=== PATIENT | female | born 1965 | race Caucasian/White ===

== ENCOUNTER 2019-06-19 12:38 | Outpatient (CLI) | payer OTHER, SELFPAY ==
--- NOTE | ~2019-06-19 | XR_ITS ---
EXAMINATION: XR lg joint inject/asp w image DATE: 06/19/2019 13:50 INDICATION: Left hip osteoarthritis TECHNIQUE: A time-out was performed to verify the patient's name, date of , and procedure to b e performed. The procedure including the risks, benefits, and alternatives was discussed with the pat ient. Risks discussed included bleeding and infection. The patient understood the risks and agreed to proceed. The skin overlying the left hip joint was prepped and draped in usual sterile fashion. An esthetic was administered with 1% lidocaine subcutaneously. A 22 G needle was advanced under fluoros copic guidance into the joint. Injection of 0.6 mL of Omnipaque 240 confirmed intra-articular positi on of the needle. Subsequently, injectate consisting of 4.5 mm of a 2:1 mixture of 0.25% Marcaine: 1 0 mg/mL Kenalog for a total dosage of 15 mg Kenalog was instilled. Washout of contrast was seen confi rming intra-articular administration. The needle was removed and the entry site was cleaned and dress ed. There were no immediate complications. Fluoroscopy exposure time was 0.1 minutes. The total numb er of images was 2. FINDINGS: Real-time fluoroscopy demonstrates the needle in the left hip joint. Patient's pain prior t o procedure:10/15. Patient's pain following the procedure: 05/17. IMPRESSION: 1. Left hip injection of local anesthetic and steroid with decrease in the patient's presenting pain. Reviewed, dictated and finalized at location A. RER OPERATOR IMPRESSION: 1. Left hip injection of local anesthetic and steroid with decrease in the candi ent's presenting pain.
== END 2019-06-19 12:39 | disposition home or self-care (01) ==
LOC: ANHIMG 12:51
PROVIDERS: PCP Nurse Practitioner Adult Health; Visit Provider Orthopaedic Surgery
DX: M16.12 Unilateral primary osteoarthritis, left hip (principal)
CPT/HCPCS: 20610; 77002; J3301; Q9966

== ENCOUNTER 2019-07-02 08:09 | Outpatient (CLI) | payer OTHER, SELFPAY ==
--- NOTE | ~2019-07-02 | US_ITS ---
EXAMINATION: US art doppler w press LE BI DATE: 07/02/2019 08:51 INDICATION: Peripheral vascular disease with risk factors of diabetes, hypercholesterolemia, smoking and hypertension presenting with cold feet and intermittent numbness and tingling. TECHNIQUE: Segmental pressures and plethysmographic and Doppler waveforms of the brachial and lower e xtremity arteries were obtained. COMPARISON: None. FINDINGS: Right and left brachial artery pressures of 128 mm Hg and 139 mm Hg, respectively, are concordant (no rmal difference <= 30 mmHg). The right and left high-thigh pressure indices are 1.19 and 1.26, respec tively (normal > 1.2). The right ankle-brachial index (DAVID) is 1.16 (normal >= 0.9-1). The right great toe-brachial index (T BI) is 0.55 (normal >= 0.6-0.8). The right lower extremity segmental pressure gradients are within no rmal limits (normal gradients <= 20-30 mmHg between adjacent levels on the same leg or the same level s on the two legs). Arterial waveforms are triphasic at the right common femoral, superficial femoral and popliteal arteries and biphasic at the right posterior tibial and dorsalis pedis arteries with b risk systolic upstrokes throughout. The left DAVID is 1.12. The left TBI is 0.73. The left lower extremity segmental pressure gradients are increased between the left dorsalis pedis artery and the left [id number] popliteal artery. Arter ial waveforms are triphasic with brisk systolic upstrokes throughout. IMPRESSION: 1. Arterial occlusive disease to the right lower limb with mildly decreased right TBI but normal righ t DAVID. 2. No significant arterial occlusive disease to the left lower limb with normal left DAVID and TBI. Reviewed, dictated and finalized at location A. RTAINMENT DANCER IMPRESSION: 1. Arterial occlusive disease to the right lower limb with mildly decreased rig ht TBI but normal right DAVID. 2. No significant arterial occlusive disease to the left lower limb with normal left DAVID and TBI.
== END 2019-07-02 08:10 | disposition home or self-care (01) ==
LOC: ANHIMG 08:10
PROVIDERS: PCP Nurse Practitioner Adult Health; Visit Provider Podiatrist Foot & Ankle Surgery
DX: I73.9 Peripheral vascular disease, unspecified (principal)
CPT/HCPCS: 93923

== ENCOUNTER 2020-08-28 10:19 | Emergency (ER) | payer OTHER, SELFPAY ==
[2020-08-28 10:27] VITALS: BP 132/64; PULSE 75; RESP 16; TEMP 37; O2SAT 100
--- NOTE | 2020-08-28 10:59 | ED.GENADULT ---
HPI - General Adult General Chief complaint: Upper Respiratory Infection Stated complaint: sinus issues/ear pain/face hurts Time Seen by Provider: 08/28/20 10:59 Source: patient Mode of arrival: ambulatory Limitations: no limitations History of Present Illness HPI narrative: 55-year-old female patient presents to the [facility] with complaints of right sided sinus pressure for the past 2 days. Denies fevers, body aches or chills. Denies coughing, chest pain or shortness of breath. Patient states that her ear has been hurting on the right side, right-sided dental pain, right-sided throat pain and feels a lot of pressure behind the right eye and has been having a headache. Patient states she has been taking [id number] Mucinex sinus, Flonase and Excedrin for her symptoms. Patient states she did get her first Covid vaccine about 3 or 4 days ago. Related Data Home Medications Medication Instructions Recorded Confirmed calcium carbonate 600 mg (1,500 600 cap PO DAILY 02/14/20 08/28/20 mg)-vitamin D3 500 unit capsule metformin 500 mg tablet 500 mg PO BID 02/14/20 08/28/20 metoprolol succinate 25 mg 25 mg PO DAILY 02/14/20 08/28/20 tablet,extended release 24 hr multivitamin 1 tablet PO DAILY 02/14/20 08/28/20 omeprazole 40 mg capsule,delayed 40 mg PO BID 02/14/20 08/28/20 release pravastatin 40 mg tablet 40 mg PO DAILY 02/14/20 08/28/20 Alavert D-12 Allergy-Sinus 1 cap PO DAILY 08/28/20 08/28/20 acetaminophen-caffeine [Excedrin 500 tablet PO PRN PRN 08/28/20 08/28/20 Aspirin Free] biotin 5,000 mcg PO DAILY 08/28/20 08/28/20 bupropion HCl 150 mg PO DAILY 08/28/20 08/28/20 diphenhydramine HCl [ZzzQuil] 25 mg PO HS 08/28/20 08/28/20 magnesium 250 mg PO DAILY 08/28/20 08/28/20 polyethylene glycol 3350 [Miralax] 08/28/20 Allergies Allergy/AdvReac Type Severity Reaction Status Date / Time penicillin G Allergy Unknown Unknown Verified 08/28/20 10:29 Review of Systems Review of Systems: Narrative: CONSTITUTIONAL: Denies fever, chills, or sweats. EYES: Denies visual changes, redness, or discharge. ENT: Denies rhinorrhea, positive congestion, sore throat, and right otalgia. CARDIOVASCULAR: Denies chest pain, palpitations, or edema. RESPIRATORY: Denies cough or dyspnea. GASTROINTESTINAL: Denies abdominal pain, nausea, vomiting, or diarrhea. GENITOURINARY: Denies dysuria or hematuria. SKIN: Denies rash or itching. MUSCULOSKELETAL: Denies back pain, joint pain, or myalgia. NEUROLOGIC: Denies headache, numbness, or weakness. PSYCHIATRIC: Denies anxiety or depression. [facility] Past Medical History Medical History (Updated 08/28/20 @ 11:05 by LACIE Lujan) Acid reflux Carotid artery disease Diabetes Goiter Hyperlipidemia Hypertension Surgical History Surgical History H/O tubal ligation H/O: hysterectomy History of delivery x2 History of hip replacement Family History Family History Father Hypertension Grandparent Hypertension Mother Carcinoma of colon Social History Social History Smoking status: Current every day smoker Alcohol intake: current Comments At the time of my signature I agree with nursing past medical history, surgical, social, and family history. There is no relevant family history pertinent to the presenting complaint. Exam Narrative: Exam Narrative: GENERAL: Well-appearing, well-nourished, and in no acute distress. HEAD: Normocephalic, atraumatic. There is tenderness noted on palpation to the right maxillary sinuses EYES: PERRLA and EOMI. ENT: Nares with erythema and edema noted to the right side, no rhinorrhea or epistaxis. Mucous membranes moist. Posterior pharynx with some postnasal drip present but no erythema, tonsillar joint, exudates or lesions present. NECK: Supple. No lymphadenopathy CHEST
== END 2020-08-28 11:10 | disposition home or self-care (01) ==
PROVIDERS: Emergency Provider Nurse Practitioner Family; PCP Nurse Practitioner Adult Health
DX: J01.00 Acute maxillary sinusitis, unspecified (principal); F17.200 Nicotine dependence, unspecified, uncomplicated; K21.9 Gastro-esophageal reflux disease without esophagitis; E11.9 Type 2 diabetes mellitus without complications; E78.5 Hyperlipidemia, unspecified; I10 Essential (primary) hypertension; I25.10 Atherosclerotic heart disease of native coronary artery without angina pectoris; Z96.649 Presence of unspecified artificial hip joint
CPT/HCPCS: 99213; G0463

== ENCOUNTER 2022-09-18 11:39 | Emergency (ER) | payer OTHER, SELFPAY ==
[2022-09-18 11:51] VITALS: BP 132/57; PULSE 75; RESP 18; TEMP 36.4; O2SAT 99
[2022-09-18 11:52] VITALS: BP 132/57; PULSE 75; RESP 18; TEMP 36.4; O2SAT 99
--- NOTE | 2022-09-18 12:05 | ED.EXTPRO ---
HPI - Extremity Problem General Chief complaint: Extremity Injury, Upper Stated complaint: right arm pain Time Seen by Provider: 09/18/22 11:57 Source: patient Mode of arrival: ambulatory Limitations: no limitations History of Present Illness HPI Narrative: Patient presents today complaining of right arm pain x1 month. Denies injury or trauma. States her primary pain is in the upper arm which radiates to the shoulder and neck. She describes the pain as a pulling sensation. She also reports intermittent tingling in the fingers. Currently rates her pain 5/10 and has been using a topical spray lidocaine and Aleve with mild relief. Pain increases with movement. She has an appoint with her PCP in 1 month, but states she can not wait that long for evaluation. Related Data Home Medications Medication Instructions Recorded Confirmed calcium carbonate 600 mg-vitamin 600 cap PO DAILY 02/14/20 09/18/22 D3 12.5 mcg (500 unit) capsule (Calcium 600 with Vitamin D3) metformin 500 mg tablet 500 mg PO BID 02/14/20 09/18/22 metoprolol succinate 25 mg 25 mg PO DAILY 02/14/20 09/18/22 tablet,extended release 24 hr multivitamin (Multiple Vitamins 1 tablet PO DAILY 02/14/20 09/18/22 tablet) omeprazole 40 mg capsule,delayed 40 mg PO BID 02/14/20 09/18/22 release pravastatin 40 mg tablet 40 mg PO DAILY 02/14/20 09/18/22 fluoxetine 20 mg capsule 20 mg PO DAILY 09/18/22 09/18/22 Allergies Allergy/AdvReac Type Severity Reaction Status Date / Time penicillin G Allergy Unknown Unknown Verified 09/18/22 11:52 Review of Systems Review of Systems: CONSTITUTIONAL: Denies body aches, fever, chills, or sweats. EYES: Denies visual changes, redness, or discharge. ENT: Denies rhinorrhea, congestion, sore throat, or otalgia. CARDIOVASCULAR: Denies chest pain, palpitations, or edema. RESPIRATORY: Denies cough or dyspnea. GASTROINTESTINAL: Denies abdominal pain, nausea, vomiting, or diarrhea. GENITOURINARY: Denies dysuria or hematuria. SKIN: Denies rash, itching, or wounds. MUSCULOSKELETAL: Denies back pain.+ right arm pain NEUROLOGIC: Denies headache, numbness, or weakness.+ right hand tingling PSYCH: Denies depression or anxiety. [facility] Past Medical History Medical History Acid reflux Carotid artery disease Diabetes Goiter Hyperlipidemia Hypertension Surgical History Surgical History H/O tubal ligation H/O: hysterectomy History of delivery x2 History of hip replacement Family History Family History Father Hypertension Grandparent Hypertension Mother Carcinoma of colon Social History Social History Smoking status: Current every day smoker Alcohol intake: current Alcohol use details: Rarely 1-2 times a year Comments At time of signature, I have reviewed and agree with nursing past medical, surgical, social and family history unless otherwise noted. Please see nursing chart for further information. There is no relevant family history pertinent to the presenting complaint Exam Narrative: GENERAL: Well-appearing, well-nourished, and in no acute distress. HEAD: Normocephalic, atraumatic. EYES: EOMI. No redness or drainage. Conjunctivae normal. ENT: Mucous membranes pink and moist. NECK: Normal AROM. Neck is nontender CHEST: No respiratory distress. EXTREMITIES: Right arm: Tenderness to the biceps, and less so to the tricep. No tenderness to the shoulder, trapezius, or neck. No edema noted to the arm. No tenderness to the forearm, wrist, hand. Distal sensation intact. Capillary refill normal. Radial pulse normal. Hand travel writer equal and strong. Full range of motion of the arm with pain with abduction greater than 135? and with internal rotation
== END 2022-09-18 12:15 | disposition home or self-care (01) ==
PROVIDERS: Emergency Provider Nurse Practitioner; PCP Hospitalist
DX: M79.621 Pain in right upper arm (principal); K21.9 Gastro-esophageal reflux disease without esophagitis; I25.10 Atherosclerotic heart disease of native coronary artery without angina pectoris; E11.9 Type 2 diabetes mellitus without complications; E04.9 Nontoxic goiter, unspecified; E78.5 Hyperlipidemia, unspecified; I10 Essential (primary) hypertension; F17.200 Nicotine dependence, unspecified, uncomplicated
CPT/HCPCS: 99213; G0463

== ENCOUNTER 2023-05-11 15:37 | Outpatient (CLI) | payer OTHER, SELFPAY ==
--- NOTE | ~2023-05-11 | DEXA_ITS ---
Bone Density Report Name: SHRAVAN RODRIGUEZ Age: 57 Sex: Female Ethnicity: White Date of : 1965 Indication: postmenopausal; screening for osteoporosis; parental hip fracture; height loss; hysterectomy; Referring Provider: TERE MATTHEWS Study: Bone densitometry was performed. Exam Date: May 11, 2023 Accession number: [id number] Bone Density: Region BMD T-score Z-score Classification AP Spine(L1-L4) 0.919 -1.2 0.0 Osteopenia Femoral Neck (Right) 0.943 0.8 1.9 Normal Total Hip (Right) 0.913 -0.2 0.5 Normal World Health Organization criteria for BMD impression classify patients as: Normal (T-score at or above -1.0), Osteopenia (T-score between -1.0 and -2.5), or Osteoporosis (T-score at or below -2.5). 10-year Fracture Risk(1): Major Osteoporotic Fracture 9.4% Hip Fracture 0.1% Reported Risk Factors: [place] (), Neck BMD=0.943, BMI=30.3, parental fracture, smoking (1) FRAX(R) Version 3.08. Fracture probability calculated for an untreated patient. Fracture probability may be lower if the patient has received treatment. Clinical Information Provided by Patient: Parent has had a hip fracture Smokes Has used the following medications: Vitamin D, Calcium Has the following medical conditions: Hysterectomy Patient maximum height was 67.5 Menopause Age: 42 Drinks caffeinated beverages Onset of menses at age 15 Number of children 2 Impression: The patient has low bone mass, based on the Total Spine T-score. The patient has an estimated ten-year risk of hip fracture of 0.1% and an estimated ten-year risk of major fracture of 9.4%, based on the WHO FRAX algorithm. The patient has risk factors, including: parental hip fracture, smoking. Discussion: BONE DENSITY IS LOW AT ONE OR MORE SKELETAL SITES. This patient's lowest T-score is low at one or more skeletal sites. It meets the World Health Organization's (WHO) criteria for ?low bone mass? (T-score between -1.0 and -2.5). The patient's 10-year risk of fracture as calculated by FRAX is less than the threshold where pharmacological therapy is recommended by the National Osteoporosis Foundation (NOF). However, all treatment decisions require clinical judgment and consideration of individual patient factors, including patient preferences, comorbidities, previous drug use, risk factors not captured in the FRAX model (e.g., frailty, falls, vitamin D deficiency, increased bone turnover, interval significant decline in bone density) and possible under or overestimation of fracture risk by FRAX. The patient should follow a healthful lifestyle (good nutrition with adequate calcium and vitamin D, and appropriate weight-bearing exercise). Follow-Up: Consider repeating this study in 2 to 3 years to reassess this patient's status, or sooner if there is some new clinical indication.
== END 2023-05-11 15:38 | disposition home or self-care (01) ==
PROVIDERS: PCP Hospitalist; Visit Provider Obstetrics & Gynecology
DX: Z78.0 Asymptomatic menopausal state (principal); M85.88 Other specified disorders of bone density and structure, other site
CPT/HCPCS: 77080